=== PATIENT | male | born 1945 | race Caucasian/White ===

== ENCOUNTER → 2016-09-26 | Outpatient (CLI) | payer MEDICARE, OTHER ==
[~2016-09-26] MED LIST: ASPI-241 PO; CIPR500T4 PO; CLOP75TA PO; HYDR-3812 PO; LISI10TA2 PO; MTP25TSR PO; OMEG500C3 PO; SIMV20TA3 PO
--- OUTSIDE RECORDS SUMMARY | 2016-09-26 08:09 | XMS REPORT | Continuity of Care Document ---
Author Author [facility] Organization [facility] Address Unknown Phone Unavailable Care Team Providers Care Inside Sales Engineer Name Role Phone ALEXIA FREY MD PCP Insurance Providers Payer Name Policy Number Subscriber Name Relationship Wps Medicare [id number] Meng [place] 18 Self / Same As Patient Enter Insurance Name [id number] Meng [place] 18 Self / Same As Patient Advance Directives Directive Response Recorded Date/Time Advance Directives No 05/04/16 11:00pm Health Care Power of Foundation Assistant No 05/04/16 11:00pm Organ Donor No 05/04/16 11:00pm Resuscitation Status Full Code 05/04/16 11:00pm Chief Complaint and Reason for Visit Chief Complaint -Male Reason for Visit [id number] Problems Active Problems Medical Problem Onset Date Status Ureteral calculus, left Unknown Acute Medications Current Home Medications Medication Dose Units Route Directions Days/Qty Instructions Start Date Clopidogrel Bisulfate 75 Mg 1 Each Oral Daily 04/21/12 Simvastatin 20 Mg 40 Mg Oral Bedtime 04/21/12 Aspirin 325 Mg 325 Mg Oral Daily 04/21/12 Metoprolol Succinate 25 Mg 12.5 Mg Oral Daily 1/2 a tab daily 04/27/12 Lisinopril 10 Mg 10 Mg Oral Daily 05/04/16 [place]-3 Fatty Acids 500 Mg 1,000 Mg Oral Daily 05/04/16 Hydrocodone/Acetaminophen 1 Each 1-2 Each Oral Every 6 Hours as needed for Pain 20 05/05/16 Ciprofloxacin Hcl 500 Mg 500 Mg Oral Twice A Day 13 05/05/16 Social History Social History Problem Response Recorded Date/Time Alcohol Use Denies Use 05/04/2016 11:00pm Recreational Drug Use No 05/04/2016 11:00pm Recent Foreign Travel No 05/04/2016 11:00pm Recent Infectious Disease Exposure No 05/04/2016 11:00pm Hospitalization with Isolation Denies 05/04/2016 11:00pm Smoking Status Never a Smoker 05/04/2016 11:00pm Recent Hopitalizations No 05/04/2016 11:00pm Hospitalization with Isolation Denies 05/04/2016 11:00pm Query Response Start Date Stop Date Smoking Status Never a Smoker Hospital Discharge Instructions No hospital discharge instructions. Plan of Care Discharge Date 05/05/16 1:38am Disposition 01 HOME, SELF-CARE Condition at Discharge Stable Instructions/Education Provided Nephrolithiasis (ED) Prescriptions See Medication Section Referrals ALEXIA FREY MD - Primary Care Physician ALEXIA FREY MD - Primary Care Physician HIEN FLORES MD - Additional Instructions/Education All discharge instructions reviewed with patient and/or family. Voiced understanding. Take medications as directed. Follow-up with your Dr. in a few days for recheck as needed. Follow up with the urologist in a few days if not improving. Return for worse pain, fever, vomiting, breathing problems, inability to urinate or other concerns as needed. Drink plenty of fluids. Functional Status No functional status results. Allergies, Adverse Reactions, Alerts No known allergies. Immunizations No immunization records. Vital Signs Acute Vital Signs Vital Response Date/Time Temperature (Fahrenheit) 97.9 degrees F (97.6 - 99.5) 05/04/2016 11:00pm Temperature (Calculated Celsius) 36.63797 degrees C (36.4 - 37.5) 05/04/2016 11:00pm Temperature Source Tympanic 05/04/2016 11:00pm Pulse Rate (adult) 65 bpm (60 - 90) 05/04/2016 11:00pm Respiratory Rate 18 bpm (12 - 24) 05/04/2016 11:00pm O2 Sat by Pulse Oximetry 96 % (88 - 100) 05/04/2016 11:00pm Blood Pressure 157/97 mm Hg 05/04/2016 11:00pm Blood Pressure Mean 117 mm Hg 05/04/2016 11:00pm Pain Numeric Pain Scale 10-Worst Possible Pain 05/04/2016 11:52pm Height (Feet) 6 feet 05/04/2016 11:00pm Height (Inches) 2 inches 05/04/2016 11:00pm Height (Calculated Centimeters) 187.568670 cm 05/04/2016 11:00pm Weight (Pounds) 266 pounds 05/04/2016 11:00pm Weight (Calculated Kilograms) 120.950670 kilograms 05/04/2016 11:00pm Capillary Refill Capillary Refill Less Than 3 Seconds 05/04/2016 11:00pm Height 6 ft 2 in Weight 266 lb Body Mass Index 34.2 kg/m^2 Results Laboratory Results Test Name Result Units Flags Reference Collection Date/Time Result Date/ Time Comments White Blood Count 12.3 10^3/uL H 4.3-11.0 05/04/2016 11:52pm 05/05/2016 12:04am Red Blood Count 4.42 10^6/uL 4.35-5.85 05/04/2016 11:52pm 05/05/2016 12 :04am Hemoglobin 15.1 G/DL 13.3-17.7 05/04/2016 11:52pm 05/05/2016 12:04am Hematocrit 42 % 40-54 05/04/2016 11:52pm 05/05/2016 12:04am Mean Corpuscular Volume 95 FL 80-99 05/04/2016 11:52pm 05/05/2016 12: 04am Mean Corpuscular Hemoglobin 34 PG 25-34 05/04/2016 11:52pm 05/05/2016 12:04am Mean Corpuscular Hemoglobin Concent 36 G/DL 32-36 05/04/2016 11:52pm 12:04am Red Cell Distribution Width 11.5 % 10.0-14.5 05/04/2016 11:52pm 2015 12:04am Platelet Count 194 10^3/uL 130-400 05/04/2016 11:52pm 05/05/2016 12: 04am Mean Platelet Volume 10.0 FL 7.4-10.4 05/04/2016 11:52pm 05/05/2016 12: 04am Neutrophils (%) (Auto) 58 % 42-75 05/04/2016 11:52pm 05/05/2016 12: 04am Lymphocytes (%) (Auto) 27 % 12-44 05/04/2016 11:52pm 05/05/2016 12: 04am Monocytes (%) (Auto) 14 % H 0-12 05/04/2016 11:52pm 05/05/2016 12:04am Eosinophils (%) (Auto) 1 % 0-10 05/04/2016 11:52pm 05/05/2016 12:04am Basophils (%) (Auto) 0 % 0-10 05/04/2016 11:52pm 05/05/2016 12:04am Neutrophils # (Auto) 7.2 X 10^3 1.8-7.8 05/04/2016 11:52pm 05/05/2016 12:04am Lymphocytes # (Auto) 3.3 X 10^3 1.0-4.0 05/04/2016 11:52pm 05/05/2016 12:04am Monocytes # (Auto) 1.7 X 10^3 H 0.0-1.0 05/04/2016 11:52pm 05/05/2016 12: 04am Eosinophils # (Auto) 0.2 10^3/uL 0.0-0.3 05/04/2016 11:52pm 05/05/2016 12:04am Basophils # (Auto) 0.0 10^3/uL 0.0-0.1 05/04/2016 11:52pm 05/05/2016 12 :04am Urine Color YELLOW 05/04/2016 12:35am 05/05/2016 1:18am Urine Clarity CLEAR 05/04/2016 12:35am 05/05/2016 1:18am Urine pH 5 5-9 05/04/2016 12:35am 05/05/2016 1:18am Urine Specific [place] 1.020 1.016-1.022 05/04/2016 12:35am 2015 1:18am Urine Protein NEGATIVE NEGATIVE 05/04/2016 12:35am 05/05/2016 1:18am Urine Glucose (UA) NEGATIVE NEGATIVE 05/04/2016 12:35am 05/05/2016 1: 18am Urine RBC (Auto) 2+ * NEGATIVE 05/04/2016 12:35am 05/05/2016 1:18am Urine Ketones NEGATIVE NEGATIVE 05/04/2016 12:35am 05/05/2016 1:18am Urine Nitrite NEGATIVE NEGATIVE 05/04/2016 12:35am 05/05/2016 1:18am Urine Bilirubin NEGATIVE NEGATIVE 05/04/2016 12:35am 05/05/2016 1: 18am Urine Urobilinogen NORMAL MG/DL NORMAL 05/04/2016 12:35am 05/05/2016 1: 18am Urine Leukocyte Esterase NEGATIVE NEGATIVE 05/04/2016 12:35am 2015 1:18am Urine RBC 2-5 /HPF * 05/04/2016 12:35am 05/05/2016 1:18am Urine WBC NONE /HPF 05/04/2016 12:35am 05/05/2016 1:18am Urine Bacteria NEGATIVE /HPF 05/04/2016 12:35am 05/05/2016 1:18am Urine Squamous Epithelial Cells 2-5 /HPF 05/04/2016 12:35am 2015 1:18am Urine Crystals NONE /LPF 05/04/2016 12:35am 05/05/2016 1:18am Urine Casts NONE /LPF 05/04/2016 12:35am 05/05/2016 1:18am Urine Mucus NEGATIVE /LPF 05/04/2016 12:35am 05/05/2016 1:18am Urine Culture Indicated NO 05/04/2016 12:35am 05/05/2016 1:18am Sodium Level 133 MMOL/L L 135-145 05/04/2016 11:52pm 05/05/2016 12:30am Potassium Level 4.1 MMOL/L 3.6-5.0 05/04/2016 11:52pm 05/05/2016 12: 30am Chloride Level 102 MMOL/L 98-107 05/04/2016 11:52pm 05/05/2016 12:30am Carbon Dioxide Level 17 MMOL/L L 21-32 05/04/2016 11:52pm 05/05/2016 12: 30am Anion Gap 14 MMOL/L 5-14 05/04/2016 11:52pm 05/05/2016 12:30am Blood Urea Nitrogen 22 MG/DL H 7-18 05/04/2016 11:52pm 05/05/2016 12: 30am Creatinine 1.58 MG/DL H 0.60-1.30 05/04/2016 11:52pm 05/05/2016 12:30am BUN/Creatinine Ratio 14 05/04/2016 11:52pm 05/05/2016 12:30am Estimat Glomerular Filtration Rate 44 05/04/2016 11:52pm 2015 12:30am GFR INTERPRETIVE DATA UNITS FOR ESTIMATED GFR (eGFR): mL/min/1.73 M2 REFERENCE RANGE FOR ESTIMATED GFR (eGFR) eGFR NORMAL eGFR >60 MODERATELY DECREASED eGFR 30-59 SEVERLY DECREASED eGFR 15-29 KIDNEY FAILURE <15 (OR DIALYSIS) Glucose Level 122 MG/DL H 70-105 05/04/2016 11:52pm 05/05/2016 12:30am Calcium Level 9.6 MG/DL 8.5-10.1 05/04/2016 11:52pm 05/05/2016 12:30am Total Bilirubin 1.0 MG/DL 0.1-1.0 05/04/2016 11:52pm 05/05/2016 12: 30am Alkaline Phosphatase 93 U/L 40-136 05/04/2016 11:52pm 05/05/2016 12: 30am Aspartate Amino Transf (AST/SGOT) 27 U/L 5-34 05/04/2016 11:52pm 2015 12:30am Alanine Aminotransferase (ALT/SGPT) 29 U/L 0-55 05/04/2016 11:52pm 04/2016 12:30am Total Protein 6.6 G/DL 6.4-8.2 05/04/2016 11:52pm 05/05/2016 12:30am Albumin 4.0 G/DL 3.2-4.5 05/04/2016 11:52pm 05/05/2016 12:30am Procedures No known history of procedures. Encounters Encounter Location Arrival/Admit Date Discharge/Depart Date Attending Provider Departed Emergency Room [facility] 05/04/16 10:46pm 05/11 1:38am KATHY HITCHCOCK MD Recent Diagnosis
[2016-09-26 08:45] LABS: ALANINE AMINOTRANSFERASE 24 U/L (0-55); ALBUMIN 3.9 G/DL (3.2-4.5); ANION GAP 10 MMOL/L (5-14); ASPARTATE AMINO TRANSFERASE 23 U/L (5-34); BILIRUBIN,TOTAL 1.1 MG/DL (0.1-1.0); BLOOD UREA NITROGEN 18 MG/DL (7-18); BUN/CREATININE RATIO 22; CALCIUM 9.1 MG/DL (8.5-10.1); CARBON DIOXIDE 21 MMOL/L (21-32); CHLORIDE 107 MMOL/L (98-107); CHOLESTEROL 129 MG/DL (< 200); CREATININE SERUM 0.81 MG/DL (0.60-1.30); DIRECT LDL 69 MG/DL (1-129); GFR ESTIMATED > 60; GLUCOSE 109 MG/DL (70-105); POTASSIUM 4.4 MMOL/L (3.6-5.0); SODIUM 138 MMOL/L (135-145); TOTAL PROTEIN 6.5 G/DL (6.4-8.2); TRIGLYCERIDES 111 MG/DL (<150); VLDL CHOLESTEROL 22 MG/DL (5-40)
== END ==
LOC: LAB 08:03
PROVIDERS: ATTEND Nurse Practitioner Family
DX: I25.10 Atherosclerotic heart disease of native coronary artery without angina pectoris (principal); I65.23 Occlusion and stenosis of bilateral carotid arteries; E78.4 Other hyperlipidemia
CPT/HCPCS: 36415; 80053; 80061

== ENCOUNTER → 2017-01-09 | Outpatient (CLI) | payer MEDICARE, OTHER ==
--- NOTE | 2017-01-09 15:29 | Diagnostic Imaging Report ---
INDICATION: Chronic back pain. COMPARISON with 03/12/2016. FINDINGS: There is again noted loss of lordosis in the upper lumbar region. Body heights well-maintained. Disc spaces are unchanged. Minimal hypertrophic lipping noted of the endplates anteriorly in the lower lumbar levels. Facets show good alignment with moderate degenerative change. No evidence of pars defect. SI joints appear normal. Aorta is calcified without evidence of aneurysm. IMPRESSION: Degenerative disc and facet disease with no appreciable overall change when compared with previous exam. Dictated by: Dictated on workstation # [id number]
== END ==
LOC: RAD 14:41
PROVIDERS: ATTEND Nurse Practitioner Family
DX: M47.816 Spondylosis without myelopathy or radiculopathy, lumbar region (principal)
CPT/HCPCS: 72100

== ENCOUNTER → 2017-01-14 | Outpatient (CLI) | payer MEDICARE, OTHER ==
--- NOTE | 2017-01-14 17:21 | Diagnostic Imaging Report ---
PROCEDURE: MRI lumbar spine. TECHNIQUE: Multiplanar, multisequence MRI of the lumbar spine was performed without contrast. INDICATION: Back pain. Right leg numbness and weakness. FINDINGS: There is reversal of the lordotic curvature in the upper to mid lumbar spine. The alignment of the posterior spinal line is satisfactory, however. The vertebral body heights are preserved. There is disc desiccation at all levels with no significant disc height loss. There is marrow edema around L4/L5 disc level. There is relatively narrow AP dimension of the spinal canal on congenital basis. No congenital spinal canal stenosis, however. The cauda equina and conus medullaris appear grossly unremarkable. T12/L1: There is a minimal disc bulge and mild facet and ligamentous hypertrophy. No spinal canal or foraminal stenosis. L1/L2: There is minimal disc bulge and mild facet hypertrophy. No spinal canal or foraminal stenosis. L2/L3: No disc herniation. Mild facet hypertrophy. No spinal canal or foraminal stenosis. L3/L4: There is a mild disc bulge with no significant posterior central component. There is mild facet hypertrophy. No central canal stenosis. There is mild narrowing of the lateral recess bilaterally. The foramina demonstrate slight narrowing as well. No nerve compression. L4/L5: There is an asymmetric disc bulge prominent in the right foraminal segment. There is moderate facet and ligamentous hypertrophy. No central canal stenosis. There is bilateral moderate to severe lateral recess stenosis abutting the descending L5 nerve roots bilaterally. There is severe foraminal narrowing on the right and mild foraminal narrowing on the left. There is also a right extraforaminal disc component encroaching upon the existing right L4 spinal nerve. L5/S1: There is a mild disc bulge and mild to moderate facet hypertrophy. No central canal stenosis. There is mild lateral recess stenosis bilaterally abutting the descending S1 nerve roots with question of mild compression. The foramina demonstrate bilateral moderate stenosis. IMPRESSION: There is prominent lateral recess stenosis at L4/L5 level encroaching upon the descending L5 nerve roots bilaterally. There is also encroachment upon the right L4 nerve root in the neuroforamen and from an extraforaminal component of the disc just after the nerve exits the foramen. Other findings as above. Dictated by: Dictated on workstation # [id number]
== END ==
LOC: RAD 16:24
PROVIDERS: ATTEND Nurse Practitioner Family
DX: M48.06 Spinal stenosis, lumbar region (principal)
CPT/HCPCS: 72148

== ENCOUNTER → 2017-04-21 | Outpatient (CLI) | payer MEDICARE, OTHER ==
[2017-04-21 08:52] LABS: ALANINE AMINOTRANSFERASE 29 U/L (0-55); ALBUMIN 3.8 GM/DL (3.2-4.5); ANION GAP 10 MMOL/L (5-14); ASPARTATE AMINO TRANSFERASE 22 U/L (5-34); BLOOD UREA NITROGEN 21 MG/DL (7-18); BUN/CREATININE RATIO 25; CALCIUM 9.1 MG/DL (8.5-10.1); CARBON DIOXIDE 22 MMOL/L (21-32); CHLORIDE 105 MMOL/L (98-107); CHOLESTEROL 157 MG/DL (< 200); CREATININE SERUM 0.85 MG/DL (0.60-1.30); DIRECT LDL 88 MG/DL (1-129); GFR ESTIMATED > 60; GLUCOSE 110 MG/DL (70-105); SODIUM 137 MMOL/L (135-145); TOTAL PROTEIN 6.8 GM/DL (6.4-8.2); TRIGLYCERIDES 132 MG/DL (<150); VLDL CHOLESTEROL 26 MG/DL (5-40)
== END ==
LOC: LAB 08:13
PROVIDERS: ATTEND Nurse Practitioner Family
DX: I25.10 Atherosclerotic heart disease of native coronary artery without angina pectoris (principal); E78.4 Other hyperlipidemia; I65.23 Occlusion and stenosis of bilateral carotid arteries; I10 Essential (primary) hypertension
CPT/HCPCS: 36415; 80053; 80061

== ENCOUNTER → 2017-05-14 | Outpatient (CLI) | payer MEDICARE, OTHER ==
[~2017-05-14] MED LIST changes: +CATHETER FLUSH 10 ML SYR IV PRN
[2017-05-14 09:41] VITALS: BP 181/51
[2017-05-14 09:45] VITALS: BP 203/54
[2017-05-14 09:46] VITALS: BP 190/55
--- NOTE | 2017-05-14 14:30 | STRESS TEST ---
DATE OF SERVICE: 05/14/2017 RESTING AND POST EXERCISE TECHNETIUM 99M TETROFOSMIN SPECT CT IMAGING ORDERING PHYSICIAN: Katrina Hammond APRN. PRIMARY PHYSICIAN: Eunice Aguirre M.D. OTHER PHYSICIAN: Hannah Mesa M.D. CLINICAL DIAGNOSIS: Coronary artery disease. Baseline images were carried out after injection of 10.09 mCi of technetium 99M Tetrofosmin. This was followed by exercise on a treadmill. Bert protocol was employed. Heart rate response to exercise was normal. Blood pressure response to exercise was somewhat hypertensive. There was incomplete left bundle branch block at baseline with nonspecific T-wave abnormality. This did not change significantly with exercise. The patient attained 93% of maximum predicted heart rate. He exercised for a total of 7 minutes and attained 8.5 METs of workload. Test was stopped on account of fatigue. After he had attained 85% of maximum predicted heart rate and had indicated that he would not be able to go more than another minute, 28.7 mCi of technetium 99M Tetrofosmin were injected and the exercise was continued for another minute. Review of images at rest and following stress indicates a small inferoapical perfusion defect that is transient. Gated images show normal global left ventricular systolic function with normal regional wall motion. Left ventricular ejection fraction is calculated to be 76%. Left ventricular end diastolic volume is 91 mL. TID is absent (1.01). CONCLUSIONS: 1. This study is indicative of a small amount of inferoapical ischemia. 2. Normal regional wall motion. 3. Normal global left systolic function with a calculated ejection fraction of 76%. Job ID: [id number] DocumentID: [id number] Dictated Date: 05/14/2017 11:44:30 Landscaper Date: 05/14/2017 12:43:15 Dictated By: HANNAH MESA MD, MA, FACP, FACC,
== END ==
LOC: CARD 07:05
PROVIDERS: ATTEND Nurse Practitioner Family
DX: I25.10 Atherosclerotic heart disease of native coronary artery without angina pectoris (principal); I65.23 Occlusion and stenosis of bilateral carotid arteries; I10 Essential (primary) hypertension; E78.4 Other hyperlipidemia
CPT/HCPCS: 78452; 93017

== ENCOUNTER 2017-05-26 07:01 | Day surgery (SDC) | payer MEDICARE, OTHER ==
[2017-05-26] VITALS (9 sets, daily range): BP systolic 108–142; BP diastolic 60–87
[~2017-05-26] VITALS: Ht 188 cm; Wt 117.9 kg
[~2017-05-26 07:01] MED LIST changes: -CATHETER FLUSH 10 ML SYR IV PRN; +HEParin 1000 UNIT/ML (10ML VIAL) FOR BOLUS ONE; +NS IV 1000 ML 3,000 ML ONE
[2017-05-26] MEDS ORDERED: NS IV 1000 ML 1,000 ML IV SCH ×2 (07:30→09:16)
[2017-05-26 07:40] LABS: MEAN PLATELET VOLUME 9.6 FL (7.4-10.4); RED BLOOD COUNT 4.65 10^6/uL (4.35-5.85); RED CELL DISTRIBUTION WIDTH 11.9 % (10.0-14.5); WHITE BLOOD COUNT 8.1 10^3/uL (4.3-11.0)
[2017-05-26] MEDS ORDERED: METO-387 PO (07:41)
[2017-05-26] MEDS ORDERED: ASPI-983 PO (07:41)
[2017-05-26] MEDS ORDERED: MULT-221 PO (07:41)
[2017-05-26] MEDS ORDERED: CETI10TA17 PO (07:41)
[2017-05-26 07:53] LABS: PROTHROMBIN TIME PATIENT 12.9 SEC (12.2-14.7)
[2017-05-26] MEDS ORDERED: MIDAZOLAM 5 MG/5 ML (VERSED) VIAL ONE (07:57)
[2017-05-26 07:58] LABS: ALANINE AMINOTRANSFERASE 30 U/L (0-55); ALBUMIN 4.1 GM/DL (3.2-4.5); ANION GAP 12 MMOL/L (5-14); ASPARTATE AMINO TRANSFERASE 27 U/L (5-34); BILIRUBIN,TOTAL 0.9 MG/DL (0.1-1.0); BLOOD UREA NITROGEN 18 MG/DL (7-18); BUN/CREATININE RATIO 18; CALCIUM 9.4 MG/DL (8.5-10.1); CARBON DIOXIDE 22 MMOL/L (21-32); CHLORIDE 103 MMOL/L (98-107); CHOLESTEROL 156 MG/DL (< 200); CREATININE SERUM 1.02 MG/DL (0.60-1.30); DIRECT LDL 88 MG/DL (1-129); GFR ESTIMATED > 60; GLUCOSE 111 MG/DL (70-105); POTASSIUM 4.1 MMOL/L (3.6-5.0); SODIUM 137 MMOL/L (135-145); TOTAL PROTEIN 7.2 GM/DL (6.4-8.2); TRIGLYCERIDES 148 MG/DL (<150); VLDL CHOLESTEROL 30 MG/DL (5-40)
[2017-05-26] MEDS ORDERED: diphenhydrAMINE 50 MG/ML INJ (BENADRYL) ONE (07:58)
[2017-05-26] MEDS ORDERED: fentaNYL INJECTION 100 MCG/2 ML AMP ONE (07:58)
--- NOTE | 2017-05-26 09:15 | Cardiac Procedure Note-CS/ASA ---
Pre-Procedure Note Pre-Op Procedure Note H&P Reviewed The H&P was reviewed, patient examined and no changes noted. Date H&P Reviewed: May 26, 2017 Time H&P Reviewed: 08:22 Conscious Sedation Pre-Proced Time Reviewed: 08:22 ASA Class: 3 Airway Mallampati Classification: ([place] appropriate class) I. II. III, IV Lungs Heart ASA score ASA 1: a normal healthy patient ASA 2: a patient with a mild systemic disease (mid diabetes, controlled hypertension, obesity ASA 3: a patient with a severe systemic disease that limits activity (angina , COPD, prior Myocardial infarction) ASA 4: a patient with an incapacitating disease that is a constant threat to life (CHF, renal failure) ASA 5: a moribund patient not expected to survive 24 hrs. (ruptured aneurysm) ASA 6: a declared brain patient whose organs are being harvested. For emergent operations, add the letter E after the classification Grade 2 Sedation Plan: Analgesia, Amnesia, Plan communicated to team members, Discussed options with patient/fam, Discussed risks with patient/fam Note The patient is an appropriate candidate to undergo the planned procedure, sedation, and anesthesia. The patient immediately re-assessed prior to indication. PHIL MESA MD FACP FAC CCDS May 26, 2017 09:15
[2017-05-26] MEDS ORDERED: ASPI-999 PO (09:20)
--- NOTE | 2017-05-26 09:21 | Discharge Inst-Post CATH ---
Discharge Inst-CATH Post Cardiac Cath D/C Inst Follow Up/Plan Follow up with Dr Cisneros in 2-3 weeks CARDIAC CATH DISCHARGE INSTRUCTIONS *Hold Metformin for 48 hours post heart cath. ACTIVITY * Go Home directly and rest. * Limit activity of the leg (or wrist if it was used) for 7 days including aerobics, swimming, jogging, bicycling, etc. * Restrict stair-climbing for 7 days if possible, if not, climb up with your non -cath leg, then bring together on the same step. * Avoid lifting, pushing, pulling or excessive movement of the affected extremity for 7 days. * Customary sexual activity may be resumed after 2 days-use caution not to use a position that strains or causes pain to the affected extremity. * No driving for 24 hours. * NO SMOKING. * Avoid straining for bowel movements for 7 days. * Gentle walking on level ground is allowed. * Returning to work will depend on the type of procedure and the results. Your doctor will discuss this with you. CALL YOUR DOCTOR FOR ANY OF THE FOLLOWING: *If bleeding from the puncture site occurs- Apply gentle pressure to site with clean cloth and call your doctor or EMS. * If a knot or lump forms under the skin, increases in size, or causes pain. * If bruising appears to be worsening or moving further down your leg instead of disappearing. * Temperature above 101 F. CARE OF YOUR GROIN INCISION; * Bruising or purple discoloration of the skin near the puncture site is common. * You may shower only, no bathtub bathing for 5 days. Be careful to avoid slipping as your leg may feel stiff. * If a closure device was used on your femoral artery, please see the attached guide regarding care of the device and your leg. * REMOVE the dressing from your groin the next day after your procedure in the shower. CARE OF YOUR WRIST INCISION; * Bruising or purple discoloration of the skin near the puncture site is common. * You may shower. * DO NOT submerge wrist. * Remove dressing in 24 hours. PHIL CISNEROS MD [facility] CCDS May 26, 2017 09:21
--- NOTE | 2017-05-26 09:22 | Discharge Inst-Cardiology ---
Discharge Inst-Cardiac Discharge Medications New Medications: Aspirin (Aspirin) 81 Mg Tab.chew 81 MG PO DAILY, #90 TAB 3 Refills Continued Medications: Cetirizine HCl (Cetirizine HCl) 10 Mg Tablet 10 MG PO HS, TAB Clopidogrel Bisulfate (Plavix 75 Mg) 75 Mg Tablet 75 MG PO DAILY Lisinopril (Lisinopril) 10 Mg Tablet 10 MG PO DAILY, TAB Metoprolol Succinate (Metoprolol Succinate) 25 Mg Tab.er.24h 25 MG PO DAILY, TAB Multivitamin (One-A-Day Essential) 1 Each Tablet 1 EACH PO HS, TAB [place]-3 Fatty Acids (Fish Oil) 500 Mg Capsule 1000 MG PO DAILY, CAP Simvastatin (Simvastatin) 20 Mg Tablet 40 MG PO HS Discontinued Medications: Aspirin (Aspirin EC) 81 Mg Tablet.dr 81 MG PO DAILY, TAB PHIL MESA MD FACP FAC CCDS May 26, 2017 09:22
[2017-05-26] MEDS ORDERED: PATIENT MAY USE OWN MEDS, ALL PO SCH (09:30)
--- NOTE | 2017-05-26 13:58 | CARDIAC CATHETERIZATION ---
DATE OF SERVICE: 05/26/2017 CARDIAC CATHETERIZATION The patient is a 71-year-old gentleman who had coronary artery bypass surgery consisting of a left internal mammary artery graft to left anterior descending artery, saphenous vein graft to an obtuse marginal system and the saphenous vein graft to the posterior descending branch of the right coronary artery in [address] Patterson at [facility] in [place], [place]. A myocardial perfusion imaging study carried out on 05/14/2017 showed a small amount of inferoapical ischemia. Left ventricular ejection fraction was 76%. Given ischemia, further options were reviewed with him. This was also discussed with his surgeon, Dr. Patterson. We proceeded with cardiac catheterization after the consensus of cardiac catheterization was reached and the patient provided an informed consent. PROCEDURE: He was brought to the cardiac catheterization laboratory in a fasting state. Right groin was prepared and draped in usual sterile fashion. A 1% lidocaine with local anesthesia. Modified Seldinger technique was used to advance a 5-Lithuanian sheath, right femoral artery. Angiography of the right femoral artery was carried out through a sheath. A 5-[place] JL4 catheter was used for left coronary angiography. A 5-[place] JR4 catheter was used for angiography of the left internal mammary artery graft to the left anterior descending artery, the right coronary artery and the aortocoronary saphenous vein graft. A 5-[place]ian pigtail catheter was used for left heart catheterization, left ventricular angiography. The catheter was pulled back to the aortic arch and aortic arch angiography was performed. Following removal of the diagnostic catheters, Mynx was used to achieve hemostasis. He tolerated the procedure well. HEMODYNAMICS: Left ventricular end-diastolic pressure following coronary angiography was 10 mmHg. There was no significant pressure gradient on pullback across the aortic valve. Ascending aortic pressure was 110/57 with a mean of 77 mmHg. CORONARY ANGIOGRAPHY: Diffuse coronary calcification is seen. Left main coronary artery does not exhibit significant obstructive disease. Left anterior descending artery has diffuse wtgo-[id number] disease and there is 95% stenosis in its mid to distal portion and the distal left anterior descending artery is moderately severely to severely diseased. The left circumflex artery has an occluded proximal obtuse marginal. The left circumflex artery has approximately 50% ostial stenosis, as well. The right coronary artery is occluded in its mid portion. Angiography of the left internal mammary artery graft: Left internal mammary artery graft angiography indicates a widely patent left internal mammary artery graft that goes to a severely diseased distal left anterior descending artery and the vessel is of a very small caliber and diffusely and severely diseased past the insertion of the graft. The vessel is of a very small caliber past the insertion of the left internal mammary graft to the left anterior descending artery. Aortocoronary graft angiography: The more cephalic graft is a sequential graft to an obtuse marginal system of the left circumflex artery. This is widely patent and free of significant disease. The more caudal graft is a patent graft to the posterior descending branch of the right coronary artery. This is patent and free of significant disease. LEFT VENTRICULAR ANGIOGRAPHY: Left ventricular angiography showed normal global left ventricular systolic function with an ejection fraction approximately 65%. There was no significant mitral regurgitation seen and no regional wall motion abnormalities are noted. ANGIOGRAPHY OF THE AORTIC ARCH. Aortic arch angiography indicated no significant thoracic aortic aneurysm or dissection. The neck arteries, to the extent seen, do not exhibit significant obstructive disease. CONCLUSIONS: 1. Severe [place] coronary artery disease including severe and diffuse disease of the distal left anterior descending artery, occlusion of proximal obtuse marginal system of the left circumflex artery and mid vessel occlusion of the right coronary artery. 2. Patent left internal mammary artery graft to the distal left anterior descending artery, but the left anterior descending artery beyond the insertion of the left internal mammary graft is of a very small caliber and is severely and diffusely diseased. 3. Patent aortocoronary graft to the posterior descending branch of the right coronary artery. 4. Patent and sequential aortocoronary graft to an obtuse marginal system of the left circumflex artery. 5. Normal global left ventricular systolic function with ejection fraction of 65%. 6. Normal left ventricular end diastolic pressure. DISCUSSION AND RECOMMENDATIONS: Based on the results of the study, it appears appropriate to continue a conservative approach. His current regimen including dual antiplatelet therapy, beta blockers, statins, and ISMAEL inhibitors are being continued. Outpatient followup is advised. Job ID: [id number] DocumentID: [id number] Dictated Date: 05/26/2017 09:08:59 Mine Engineering Supervisor Date: 05/26/2017 13:58:17 Dictated By: PHIL MESA MD, MA, FACP, FACC,
== END 2017-05-26 11:33 | disposition home or self-care (01) ==
LOC: CATH 07:01 → SURG 09:17 → CATH 11:33
PROVIDERS: ATTEND Internal Medicine Cardiovascular Disease
DX: I25.10 Atherosclerotic heart disease of native coronary artery without angina pectoris (principal); E78.2 Mixed hyperlipidemia; I10 Essential (primary) hypertension; I65.23 Occlusion and stenosis of bilateral carotid arteries; R73.01 Impaired fasting glucose; E66.9 Obesity, unspecified; Z68.33 Body mass index [BMI] 33.0-33.9, adult; Z86.73 Personal history of transient ischemic attack (TIA), and cerebral infarction without residual deficits; Z95.1 Presence of aortocoronary bypass graft; Z79.82 Long term (current) use of aspirin
CPT/HCPCS: 36221; 36415; 80053; 80061; 85027; 85610; 85730; 87081; 93459

== ENCOUNTER 2017-07-23 13:10 | Outpatient (CLI) | payer MEDICARE, OTHER ==
[~2017-07-23] VITALS: Ht 188 cm; Wt 114.3 kg
[~2017-07-23 13:10] MED LIST changes: +ACHD5005 PO; +ASPI-983 PO; +ASPI-999 PO; +CETI10TA17 PO; -HEParin 1000 UNIT/ML (10ML VIAL) FOR BOLUS ONE; -HYDR-3812 PO; +METO-387 PO; +MULT-221 PO; -NS IV 1000 ML 3,000 ML ONE
[2017-07-23] MEDS ORDERED: methylPREDNISolone 80 MG/ML (DEPO MEDROL) VIAL ONE (13:31)
[2017-07-23 14:18] VITALS: BP 147/59
[2017-07-23 14:50] VITALS: BP 154/80
--- NOTE | 2017-07-25 04:46 | OPERATIVE REPORT ---
DATE OF SERVICE: 07/23/2017 DIAGNOSIS: Right sacroiliitis. PROCEDURE: Fluoroscopic guided right-sided sacroiliac joint injection. PROCEDURE IN DETAIL: After obtaining informed consent from the patient, the patient's chart was reviewed. The patient was then brought to the procedure room, placed in prone position, a timeout was performed. The patient's back was prepped with antiseptic solution. Under fluoroscopic guidance, the patient's sacroiliac joint on the right side was identified. Right-sided sacroiliac joint was identified with fluoroscopic guidance and approximately 2 mL of 1.5% lidocaine was used to anesthetize the skin with a 22-gauge 3-1/2 inch spinal needle. This same spinal needle was then advanced under fluoroscopic guidance until it was placed at the inferior third of the SI joint on the right side. After negative aspiration, the solution was injected through the spinal needle. The solution was 80 mg of Depo-Medrol. After steroid was injected, then flushed out the needle with lidocaine used for prep and the needle was then removed. Bandages were applied to all sites. The patient tolerated the procedure well and was taken to recovery area in stable condition. No complications noted. Job ID: [id number] DocumentID: [id number] Dictated Date: 07/24/2017 19:10:30 Dictaphone Typist Date: 07/25/2017 04:04:12 Dictated By: VARINDER COLINDRES DO
== END 2017-07-23 14:51 ==
LOC: CARD 13:10
PROVIDERS: ATTEND Pain Medicine Interventional Pain Medicine
DX: M46.1 Sacroiliitis, not elsewhere classified (principal)
CPT/HCPCS: 27096

== ENCOUNTER → 2018-07-02 | Outpatient (CLI) | payer MEDICARE, OTHER ==
[2018-07-02 08:11] LABS: ALANINE AMINOTRANSFERASE 33 U/L (0-55); ALKALINE PHOSPHATASE 87 U/L (40-136); BILIRUBIN,TOTAL 0.6 MG/DL (0.1-1.0); BUN/CREATININE RATIO 33; CALCIUM 9.8 MG/DL (8.5-10.1); CARBON DIOXIDE 24 MMOL/L (21-32); CHLORIDE 103 MMOL/L (98-107); CHOLESTEROL 174 MG/DL (< 200); CREATININE SERUM 0.89 MG/DL (0.60-1.30); GFR ESTIMATED > 60; GLUCOSE 117 MG/DL (70-105); HDL CHOLESTEROL 50 MG/DL (40-60); POTASSIUM 4.4 MMOL/L (3.6-5.0); SODIUM 139 MMOL/L (135-145); TRIGLYCERIDES 133 MG/DL (<150); VLDL CHOLESTEROL 27 MG/DL (5-40)
== END ==
LOC: LAB 07:27
PROVIDERS: ATTEND Nurse Practitioner Family
DX: I25.10 Atherosclerotic heart disease of native coronary artery without angina pectoris (principal); I95.1 Orthostatic hypotension; E78.5 Hyperlipidemia, unspecified; I77.89 Other specified disorders of arteries and arterioles
CPT/HCPCS: 36415; 80053; 80061; 83735

== ENCOUNTER → 2019-02-11 | Outpatient (CLI) | payer MEDICARE, OTHER ==
[2019-02-11 08:37] LABS: ALANINE AMINOTRANSFERASE 36 U/L (0-55); ALBUMIN 3.8 GM/DL (3.2-4.5); ALKALINE PHOSPHATASE 107 U/L (40-136); BILIRUBIN,TOTAL 0.7 MG/DL (0.1-1.0); BUN/CREATININE RATIO 20; CALCIUM 9.6 MG/DL (8.5-10.1); CARBON DIOXIDE 24 MMOL/L (21-32); CHLORIDE 106 MMOL/L (98-107); CHOLESTEROL 169 MG/DL (< 200); CREATININE SERUM 0.87 MG/DL (0.60-1.30); GFR ESTIMATED > 60; GLUCOSE 126 MG/DL (70-105); HDL CHOLESTEROL 54 MG/DL (40-60); POTASSIUM 4.2 MMOL/L (3.6-5.0); SODIUM 139 MMOL/L (135-145); TOTAL PROTEIN 6.6 GM/DL (6.4-8.2); TRIGLYCERIDES 158 MG/DL (<150); VLDL CHOLESTEROL 32 MG/DL (5-40)
== END ==
LOC: LAB 08:00
PROVIDERS: ATTEND Nurse Practitioner Family
DX: I25.10 Atherosclerotic heart disease of native coronary artery without angina pectoris (principal); I65.29 Occlusion and stenosis of unspecified carotid artery; E78.5 Hyperlipidemia, unspecified; I10 Essential (primary) hypertension
CPT/HCPCS: 36415; 80053; 80061

== ENCOUNTER → 2019-03-29 | Outpatient (CLI) | payer MEDICARE, OTHER ==
[2019-03-29 09:12] LABS: ALANINE AMINOTRANSFERASE 45 U/L (0-55); ALBUMIN 3.8 GM/DL (3.2-4.5); ALKALINE PHOSPHATASE 123 U/L (40-136); BILIRUBIN,TOTAL 0.8 MG/DL (0.1-1.0); BUN/CREATININE RATIO 23; CARBON DIOXIDE 24 MMOL/L (21-32); CHLORIDE 107 MMOL/L (98-107); CHOLESTEROL 151 MG/DL (< 200); GFR ESTIMATED > 60; GLUCOSE 136 MG/DL (70-105); HDL CHOLESTEROL 44 MG/DL (40-60); SODIUM 140 MMOL/L (135-145); TOTAL PROTEIN 6.5 GM/DL (6.4-8.2); TRIGLYCERIDES 174 MG/DL (<150); VLDL CHOLESTEROL 35 MG/DL (5-40)
== END ==
LOC: LAB 08:12
PROVIDERS: ATTEND Nurse Practitioner Family
DX: I25.10 Atherosclerotic heart disease of native coronary artery without angina pectoris (principal); E78.5 Hyperlipidemia, unspecified; I10 Essential (primary) hypertension; E66.9 Obesity, unspecified
CPT/HCPCS: 36415; 80053; 80061

== ENCOUNTER → 2020-01-18 | Outpatient (CLI) | payer MEDICARE ==
[~2020-01-18] MED LIST changes: -METO-387 PO
== END ==
LOC: CARD 11:15
PROVIDERS: ATTEND Internal Medicine Cardiovascular Disease
DX: I77.89 Other specified disorders of arteries and arterioles (principal); I25.10 Atherosclerotic heart disease of native coronary artery without angina pectoris; E78.2 Mixed hyperlipidemia; I35.0 Nonrheumatic aortic (valve) stenosis
CPT/HCPCS: 93306

== ENCOUNTER → 2020-01-20 | Outpatient (CLI) | payer MEDICARE ==
[~2020-01-20] VITALS: Ht 187 cm; Wt 132.0 kg
[~2020-01-20] MED LIST changes: +CATHETER FLUSH 10 ML SYR IV PRN; +REGADENOSON 0.4 MG/5 ML SYR (LEXISCAN) IV ONE
[2020-01-20 08:48] VITALS: BP 137/68
--- NOTE | 2020-01-20 16:05 | STRESS TEST ---
DATE OF SERVICE: 01/20/2020 RESTING AND POST REGADENOSON TECHNETIUM-99M SESTAMIBI TETROFOSMIN SPECT CT IMAGING CLINICAL DIAGNOSIS: Baseline images were carried out after injection of 10.72 mCi of technetium-99m Tetrofosmin. This was followed by 0.4 mg regadenoson and 32.5 mCi of technetium-99m Tetrofosmin. The electrocardiogram showed sinus rhythm with left bundle branch block. Premature ventricular contractions were seen on this study. He noted some shortness of breath and mild chest discomfort, which resolved in a few minutes. Review of images at rest and following stress indicates a small basal inferior perfusion defect, which appears transient. Gated images show normal global left ventricular systolic function and normal regional wall motion. Left ventricular ejection fraction is calculated to be 61%. TID is absent (1.12). CONCLUSIONS: 1. This study suggests a small amount of basal inferior ischemia. 2. Normal regional wall motion. 3. Normal global left ventricular systolic function with a calculated ejection fraction of 61%. Job ID: [id number] DocumentID: [id number] Dictated Date: 01/20/2020 13:41:32 Access Consultant Date: 01/20/2020 16:04:22 Dictated By: PHIL MESA MD, MA, FACP, FACC,
== END ==
LOC: CARD 07:12
PROVIDERS: ATTEND Internal Medicine Cardiovascular Disease
DX: I25.10 Atherosclerotic heart disease of native coronary artery without angina pectoris (principal); I65.29 Occlusion and stenosis of unspecified carotid artery; I10 Essential (primary) hypertension; E78.5 Hyperlipidemia, unspecified
CPT/HCPCS: 78452; 93017; A9502

== ENCOUNTER → 2021-05-22 | Outpatient (CLI) | payer MEDICARE ==
[~2021-05-22] MED LIST changes: +ASPI-1238 PO; -ASPI-983 PO; -CATHETER FLUSH 10 ML SYR IV PRN; -CIPR500T4 PO; +CIPR500T5 PO; -LISI10TA2 PO; +LISI10TA25 PO; -REGADENOSON 0.4 MG/5 ML SYR (LEXISCAN) IV ONE
--- NOTE | 2021-05-22 09:42 | Diagnostic Imaging Report ---
PROCEDURE: US Hepatic (Liver). TECHNIQUE: Multiple real-time grayscale images were obtained over the right upper quadrant in various projections. INDICATION: Elevated liver enzymes The liver is echogenic consistent with hepatic steatosis. No focal lesion is seen. The gallbladder appears normal. The common bile duct is obscured by gas but no intrahepatic biliary ductal dilatation is seen. Pancreas and aorta obscured by bowel gas. No abnormality of the aorta is seen. The right kidney is normal. There is no ascites. IMPRESSION: Hepatic steatosis. No acute abnormality is seen. Dictated by: Dictated on workstation # [id number]
== END ==
LOC: RAD 07:00
PROVIDERS: ATTEND Family Medicine
DX: K76.0 Fatty (change of) liver, not elsewhere classified (principal)
CPT/HCPCS: 76705

== ENCOUNTER → 2022-06-27 | Outpatient (CLI) | payer MEDICARE ==
[~2022-06-27] MED LIST changes: +CATHETER FLUSH 10 ML SYR IVP PRN; +REGADENOSON 0.4 MG/5 ML SYR (LEXISCAN) IV ONE
[2022-06-27 09:25] VITALS: BP 168/74
--- NOTE | 2022-07-01 15:23 | STRESS TEST ---
DATE OF SERVICE: 06/27/2022 RESTING AND POST REGADENOSON TECHNETIUM-99M TETROFOSMIN SPECT CT IMAGING ORDERING PHYSICIAN: Katrina Hammond APRN. PRIMARY PHYSICIAN: Dr. Peralta. CLINICAL DIAGNOSIS: Coronary artery disease. Baseline images were carried out after injection of 8.3 mCi of technetium-99m Tetrofosmin. This was followed by 0.4 mg of regadenoson and 24.8 mCi of technetium-99m Tetrofosmin for stress imaging. The electrocardiogram showed sinus rhythm with right bundle branch block. The electrocardiogram did not change significantly with the regadenoson infusion. There was evidence of left ventricular hypertrophy and left axis deviation on the electrocardiogram throughout the study. Isolated premature ventricular contractions were seen. He reported some dizziness and headache, which resolved in a few minutes. Review of images at rest and following stress does not indicate any distinct perfusion defects consistent with significant myocardial ischemia or infarction. Some degree of diaphragmatic attenuation was seen both at rest and following regadenoson infusion. Gated images show normal regional wall motion, including the diaphragmatic wall of the left ventricle. CONCLUSION: 1. No evidence of significant myocardial ischemia or infarction on this study. 2. Normal regional wall motion. 3. Normal global left ventricular systolic function with a calculated ejection fraction of 58%. Job ID: [id number] DocumentID: [id number] Dictated Date: 07/01/2022 12:19:28 Dental Assistant Date: 07/01/2022 15:21:00 Dictated By: PHIL MESA MD; EMELY; FACP; FACC;
== END ==
LOC: CARD 07:01
PROVIDERS: ATTEND Nurse Practitioner Family
DX: I25.10 Atherosclerotic heart disease of native coronary artery without angina pectoris (principal)
CPT/HCPCS: 78452; 93017; A9502